=== PATIENT | female | born 1940 | race Caucasian/White ===

== ENCOUNTER 2017-05-19 13:16 | Emergency (ER) | payer MEDICARE ==
[~2017-05-19] VITALS: Ht 154.9 cm; Wt 104.5 kg
[~2017-05-19 13:16] MED LIST: APIXABAN PO; CRESTOR 10MG10 MG PO; CRESTOR5 MG PO; DIOVAN HCT 25 M1 TA1 PO; ELIQUIS 5MG PO; LEVAQUIN 5500 MG/TA1 PO; NORVASC 5MG5 MG/TAB PO
[2017-05-19 13:19] VITALS: TEMP 97.6
[2017-05-19] MEDS ORDERED: ELIQUIS 5MG PO (14:12)
[2017-05-19 14:13] LABS: BASO # 0.1 (0.0-0.2); BASO % 0.5 % (0.0-2.0); EOS # 0.2 (0.0-0.7); EOS % 1.6 % (0-4.0); GRAN # 5.6 (1.4-6.5); GRAN % 52.4 % (42.2-75.2); HEMATOCRIT 44.5 % (37.0-47.0); HEMOGLOBIN 14.7 g/dl (12.5-16.0); LYMPH # 3.5 (1.2-3.4); LYMPH % 32.7 % (20.0-51.0); MEAN CELL VOLUME 90 fl (80.0-100.0); MEAN CORPUSCULAR HEMOGLOBIN 30 pg (27.0-31.0); MEAN CORPUSCULAR HGB CONC 33 g/dl (33.0-37.0); MEAN PLATELET VOLUME 10.7 fl (7.4-10.4); MONO # 1.3 (0.1-0.6); MONO % 12.6 % (1.7-9.3); PLATELET COUNT 196 K/mm3 (130-400); RED BLOOD COUNT 4.94 M/mm3 (4.10-5.30); REDCELL DISTRIBUTION WIDTH-CV 12.8 % (11.5-14.5); WHITE BLOOD COUNT 10.6 K/mm3 (4.8-10.8)
[2017-05-19 14:38] LABS: ADJUSTED CALCIUM 9.7 mg/dL (8.4-10.2); ALBUMIN 4.1 gm/dL (3.5-5.0); BILIRUBIN,TOTAL 0.9 mg/dL (0.0-1.0); C-REACTIVE PROTEIN 0.6 mg/dL (0.0-0.9); CALCIUM 9.8 mg/dL (8.4-10.2); CREATININE, serum 1.38 mg/dL (0.52-1.25); POTASSIUM 4.6 mmol/L (3.4-5.0); TOTAL PROTEIN 8.3 gm/dL (6.4-8.2)
[2017-05-19 14:49] LABS: PH 5 (5-8); URINE APPEARANCE Cloudy; URINE BACTERIA None Seen /hpf; URINE BILIRUBIN Negative (NEGATIVE); URINE BLOOD 1+ (NEGATIVE); URINE COLOR Amber; URINE GLUCOSE Negative (NEGATIVE); URINE KETONE Negative (NEGATIVE); URINE UROBILINOGEN Negative (NEGATIVE); URINE WBC >50 /hpf
[2017-05-19] MEDS ORDERED: CEFACLOR250 MG PO (15:35)
[2017-05-19] MEDS ORDERED: NORCO 325 MG-51 TAB PO (15:35)
[2017-05-19 15:43] VITALS: BP 152/70; PULSE 66
== END 2017-05-19 15:44 | disposition home or self-care (01) ==
LOC: COL.ER 13:16
PROVIDERS: Physician Assistant
DX: M54.42 Lumbago with sciatica, left side (principal); N39.0 Urinary tract infection, site not specified; E78.5 Hyperlipidemia, unspecified; E78.00 Pure hypercholesterolemia, unspecified; Z95.5 Presence of coronary angioplasty implant and graft; I25.10 Atherosclerotic heart disease of native coronary artery without angina pectoris; K59.00 Constipation, unspecified

== ENCOUNTER 2017-07-16 12:30 | Outpatient (RCR) | payer MEDICARE ==
[~2017-07-16 12:30] MED LIST changes: +CEFACLOR250 MG PO; +NORCO 325 MG-51 TAB PO
== END 2017-09-03 14:43 | disposition home or self-care (01) ==
LOC: WSPT 12:30
DX: M54.40 Lumbago with sciatica, unspecified side (principal); M53.3 Sacrococcygeal disorders, not elsewhere classified
CPT/HCPCS: G8978-GP; G8979-GP

== ENCOUNTER → 2020-10-05 | Outpatient (CLI) | payer MEDICARE ==
[~2020-10-05] VITALS: Ht 154.9 cm; Wt 102.3 kg
[~2020-10-05] MED LIST changes: +COZAAR 25MG25 MG/TAB PO; +GLUCOPHAGE1000 MG PO
[2020-10-05 10:40] VITALS: BP 180/77; PULSE 51
[2020-10-05 10:48] LABS: INR 1.1 (0.8-3.0); PROTHROMBIN TIME 12.7 SECONDS (9.7-12.8)
--- NOTE | 2020-10-05 12:56 | NUR ---
procedure was cancelled . unable to get iv access
== END ==
LOC: COL.RAD 10:00
PROVIDERS: Internal Medicine Gastroenterology
DX: R94.5 Abnormal results of liver function studies (principal); R93.2 Abnormal findings on diagnostic imaging of liver and biliary tract

== ENCOUNTER → 2020-10-16 | Outpatient (CLI) | payer MEDICARE ==
--- NOTE | 2020-10-16 13:59 | NUR ---
PT GOT TO THE HOSPITAL LATE. SPOKE TO STAFF REGARDING PT APPT TIME. THEY WERE GOING TO GET HER ADMITTED RIGHT AWAY. THEY CALLED AT 1305 AND TALKED ABOUT ANOTHER PT. I TOLD ADMISSIONS THAT THE PT WAS ALREADY WELL AFTER HER TIME AND WAS NOW INTO HER PROCEDURE TIME. PT IS A DIFFICULT STICK. PROCEDURE WAS CANCELLED.
== END ==
LOC: COL.RAD 10-06 13:00
DX: R93.2 Abnormal findings on diagnostic imaging of liver and biliary tract (principal); R94.5 Abnormal results of liver function studies

== ENCOUNTER → 2020-10-20 | Outpatient (CLI) | payer MEDICARE ==
[2020-10-20] VITALS (10 sets, daily range): BP systolic 142–191; BP diastolic 67–97; PULSE 61–78
[~2020-10-20] VITALS: Ht 154.9 cm; Wt 100.0 kg
[~2020-10-20] MED LIST changes: +LIPITOR 10MG10 MG PO
[2020-10-20 10:36] LABS: INR 1.1 (0.8-3.0); PROTHROMBIN TIME 11.9 SECONDS (9.7-12.8)
--- NOTE | 2020-10-20 12:05 | NUR ---
Dr Harris in room, procedure started
--- NOTE | 2020-10-20 12:15 | NUR ---
liver sample done, placed in formulin, bandaid over site, Dr Harris apply pressure to site at 1220
--- NOTE | 2020-10-20 14:30 | NUR ---
scan done as ordered, bandaid site is clean and dry. pt transferred via w/c to [facility]
== END ==
LOC: COL.RAD 09:18
PROVIDERS: Radiology Diagnostic Radiology
DX: R94.5 Abnormal results of liver function studies (principal); R93.2 Abnormal findings on diagnostic imaging of liver and biliary tract

== ENCOUNTER 2021-06-15 11:11 | Day surgery (SDC) | payer MEDICARE, MEDICAID ==
[~2021-06-15] VITALS: Ht 154.9 cm; Wt 98.1 kg
[2021-06-15] MEDS ORDERED: IMURAN 50MG TAB50 MG PO (12:59)
[2021-06-15] MEDS ORDERED: COZAAR100 MG PO (13:00)
[2021-06-15 13:26] VITALS: BP 149/82; PULSE 71; TEMP 97.8
[2021-06-15 14:10] VITALS: BP 136/55; PULSE 69; TEMP 97.7
--- NOTE | 2021-06-15 14:10 | NUR ---
Pt returns to [facility], walks to recliner, denies pain or nausea and doesn't want anything to eat or drink, VSS. Call light in reach.
[2021-06-15 14:25] VITALS: BP 134/78; PULSE 66
--- NOTE | 2021-06-15 14:25 | NUR ---
Pt tolerates water well, denies nausea or pain, Dr. Beltran talks with pt. VSS. Call light in reach.
[2021-06-15 14:40] VITALS: BP 143/72; PULSE 64
--- NOTE | 2021-06-15 14:50 | NUR ---
Discharge instructions provided and pt understands to belt picker new medication at pharmacy. VSS. Pt taken out via wheelchair and left in care of [id number] Rena.
== END 2021-06-15 14:50 | disposition home or self-care (01) ==
LOC: SDCO 11:11
DX: K21.9 Gastro-esophageal reflux disease without esophagitis (principal); K25.7 Chronic gastric ulcer without hemorrhage or perforation; I10 Essential (primary) hypertension; I25.10 Atherosclerotic heart disease of native coronary artery without angina pectoris; M19.90 Unspecified osteoarthritis, unspecified site; E11.9 Type 2 diabetes mellitus without complications; M54.50 Low back pain, unspecified; E78.5 Hyperlipidemia, unspecified; Z20.822 Contact with and (suspected) exposure to COVID-19; Z79.84 Long term (current) use of oral hypoglycemic drugs; Z79.899 Other long term (current) drug therapy; Z90.49 Acquired absence of other specified parts of digestive tract
CPT/HCPCS: J2704; J7030

== ENCOUNTER 2022-11-10 14:38 | Emergency (ER) | payer MEDICARE, MEDICAID ==
[~2022-11-10] VITALS: Ht 154.9 cm; Wt 88.2 kg
[~2022-11-10 14:38] MED LIST changes: +COZAAR100 MG PO; +IMURAN 50MG TAB50 MG PO
[2022-11-10 14:52] VITALS: TEMP 98.1
[2022-11-10 16:39] LABS: BASO # 0.1 K/mm3 (0.0-0.2); BASO % 0.7 % (0.0-2.0); EOS # 0.2 K/mm3 (0.0-0.7); EOS % 3.1 % (0.0-4.0); GRAN # 4.6 K/mm3 (1.4-6.5); GRAN % 67.1 % (42.2-75.2); HEMOGLOBIN 11.9 g/dl (12.5-16.0); LYMPH # 1.1 K/mm3 (1.2-3.4); LYMPH % 15.6 % (20.0-51.0); MEAN CELL VOLUME 92 fl (80.0-100.0); MEAN CORPUSCULAR HEMOGLOBIN 30 pg (27-31); MEAN CORPUSCULAR HGB CONC 33 g/dl (33.0-37.0); MEAN PLATELET VOLUME 10.4 fl (7.4-10.4); MONO # 0.9 K/mm3 (0.1-0.6); MONO % 13.2 % (1.7-9.3); PLATELET COUNT 128 K/mm3 (130-400); RED BLOOD COUNT 3.96 M/mm3 (4.10-5.30); REDCELL DISTRIBUTION WIDTH-CV 14.6 % (11.5-14.5)
[2022-11-10 16:47] LABS: HEMATOCRIT 36.4 % (37.0-47.0)
[2022-11-10 16:54] LABS: C-REACTIVE PROTEIN 2.17 mg/dL (0.00-0.50); CALCIUM 8.9 mg/dL (8.4-10.2); CREATININE, serum 1.03 mg/dL (0.57-1.11); POTASSIUM 3.7 mmol/L (3.5-4.5)
[2022-11-10 17:02] LABS: ERYTHROCYTE SEDIMENTATION RATE 69 mm/hr (0-30)
[2022-11-10] MEDS ORDERED: NAPROSYN 2250 MG/TAB PO (17:09)
[2022-11-10 17:34] VITALS: BP 165/77; PULSE 74
== END 2022-11-10 17:34 | disposition home or self-care (01) ==
LOC: COL.ER 14:38
PROVIDERS: Emergency Medicine
DX: M25.532 Pain in left wrist (principal)

== ENCOUNTER 2024-02-26 12:30 | Day surgery (SDC) | payer MEDICARE, MEDICAID ==
[~2024-02-26] VITALS: Ht 154.9 cm; Wt 80.8 kg
[~2024-02-26 12:30] MED LIST changes: +ATARAX 10MG10 MG/TAB PO; +LASIX 20MG TABL20 MG PO; +LR 1,000 ML IV SCH; +MIRALAX PA17 GM/Dose PO; +MULTAQ400 MG PO; +MYFORTIC360 MG PO; +NAPROSYN 2250 MG/TAB PO; +Ondansetron 4 MG/2 ML VIAL IV PRN; +PRIL40 PO
--- NOTE | 2024-02-26 12:35 | NUR ---
PATIENT ADMITTED TO [facility] AMBULATORY WITH USE OF WALKER. NOTED BILATERAL +3 PEDAL EDEMA. PATIENT IS POOR HISTORIAN WITH HEALTH QUESTIONS. READIED FOR PROCEDURES AND IVF INFUSING. CALL LIGHT IN REACH.
[2024-02-26 13:28] VITALS: BP 133/57; PULSE 64; TEMP 98.1
[2024-02-26] MEDS ORDERED: Lidocaine PF 2% (20 MG/ML) 5 ML VIAL ONE (13:41)
[2024-02-26 14:15] VITALS: BP 106/45; PULSE 65; TEMP 97.5
[2024-02-26 14:30] VITALS: BP 118/49; PULSE 63
[2024-02-26 14:45] VITALS: BP 130/58; PULSE 65
--- NOTE | 2024-02-26 17:44 | NUR ---
1415 Received report from PAULA Tate. Patient returned to [facility]. Patient is alert and answers questions appropriately, able to ambulate from cart to chair with assistance. 1424 Patient given a muffin and juice for a PO challenge. Tolerated well. 1501 in room to update the patient and her son on results and plan for care. 1524 Physician discharge instructions and printed patient educational materials reviewed with the patient and her son. Questions invited and answered. 1533 Patient to lobby via wheelchair for a ride home with son in POV.
== END 2024-02-26 15:33 | disposition home or self-care (01) ==
LOC: SDCO 12:30
DX: D64.9 Anemia, unspecified (principal); I85.00 Esophageal varices without bleeding; K29.30 Chronic superficial gastritis without bleeding; D12.3 Benign neoplasm of transverse colon; K64.1 Second degree hemorrhoids; K57.30 Diverticulosis of large intestine without perforation or abscess without bleeding; K21.9 Gastro-esophageal reflux disease without esophagitis; E11.9 Type 2 diabetes mellitus without complications; R63.4 Abnormal weight loss; Z79.84 Long term (current) use of oral hypoglycemic drugs; Z95.5 Presence of coronary angioplasty implant and graft; Z87.891 Personal history of nicotine dependence
CPT/HCPCS: J2704; J7120

== ENCOUNTER 2024-05-26 20:20 | Emergency (ER) | payer MEDICARE, MEDICAID ==
[~2024-05-26] VITALS: Ht 154.9 cm; Wt 77.3 kg
[~2024-05-26 20:20] MED LIST changes: -LR 1,000 ML IV SCH; -Ondansetron 4 MG/2 ML VIAL IV PRN
[2024-05-26 20:23] VITALS: TEMP 98.1
[2024-05-26] MEDS ORDERED: fentaNYL 50 MCG/ML 2 ML VIAL IV ONE (20:45)
[2024-05-26 21:31] LABS: BASO % 0.5 % (0.0-2.0); EOS # 0.3 K/mm3 (0.0-0.7); EOS % 4.7 % (0.0-4.0); GRAN # 4.5 K/mm3 (1.4-6.5); GRAN % 73.1 % (42.2-75.2); LYMPH # 0.7 K/mm3 (1.2-3.4); LYMPH % 10.9 % (20.0-51.0); MEAN CELL VOLUME 81 fl (80.0-100.0); MEAN CORPUSCULAR HGB CONC 30 g/dl (33.0-37.0); MONO # 0.6 K/mm3 (0.1-0.6); MONO % 10.1 % (1.7-9.3); PLATELET COUNT 172 K/mm3 (130-400); RED BLOOD COUNT 3.54 M/mm3 (4.10-5.30); REDCELL DISTRIBUTION WIDTH-CV 18.8 % (11.5-14.5)
[2024-05-26 21:41] LABS: HEMATOCRIT 28.7 % (37.0-47.0); HEMOGLOBIN 8.7 g/dl (12.5-16.0); MEAN CORPUSCULAR HEMOGLOBIN 25 pg (27-31)
[2024-05-26 21:43] LABS: INR 1.2 (0.8-3.0); PROTHROMBIN TIME 12.8 SECONDS (9.7-12.8)
[2024-05-26 21:57] LABS: ALBUMIN 2.5 g/dL (3.4-4.8); BILIRUBIN,TOTAL 0.8 mg/dL (0.2-1.2); CALCIUM 8.5 mg/dL (8.4-10.2); CREATININE, serum 1.25 mg/dL (0.57-1.11); POTASSIUM 4.1 mEq/L (3.5-4.5); TOTAL PROTEIN 8.1 g/dl (6.2-8.1)
[2024-05-26 22:35] VITALS: BP 152/67; PULSE 65
== END 2024-05-26 22:35 | disposition home or self-care (01) ==
LOC: COL.ER 20:20
PROVIDERS: Emergency Medicine
DX: S42.031A Displaced fracture of lateral end of right clavicle, initial encounter for closed fracture (principal); W18.39XA Other fall on same level, initial encounter; Y93.01 Activity, walking, marching and hiking
CPT/HCPCS: J3010